=== PATIENT | male | born 1965 | race Caucasian/White ===

== ENCOUNTER 2021-12-11 12:20 | Emergency (ER) | payer BC, OTHER, SELFPAY ==
[2021-12-11 12:28] VITALS: BP 133/89; PULSE 76; RESP 16; TEMP 36.4; O2SAT 100
--- NOTE | 2021-12-11 16:05 | PC.NURSE ---
pt up to desk. wanting to be seen by provider in a timely manner . pt asking if he will be charged. pt informed I was unsure if he would be charged. pt threw arms into air and said wonderful . pt amb out of ED with steady gait.
== END 2021-12-11 16:39 | disposition left against medical advice (07) ==
LOC: ANHED 16:18
PROVIDERS: PCP Internal Medicine
DX: R53.83 Other fatigue (principal)
CPT/HCPCS: 99199